=== PATIENT | male | born 1950 | race Caucasian/White ===

== ENCOUNTER 2020-09-08 11:40 | Day surgery (SDC) | payer MEDICARE ==
[2020-09-05 10:03] VITALS: BMI 22.6
[2020-09-08] MEDS ORDERED: Lidocaine 1% MPF 2 ML VIAL ONE (12:15)
[2020-09-08] MEDS ORDERED: PROPOFOL 40 ML ONE (12:53)
[2020-09-08] MEDS ORDERED: Lidocaine 2% MPF 10 ML AMP (For Epidural Use) ONE (12:53)
== END 2020-09-08 14:47 | disposition home or self-care (01) ==
LOC: CSHSDC 11:40
PROVIDERS: ATTEND Internal Medicine Gastroenterology
PROC: 0DJD8ZZ Inspection of Lower Intestinal Tract, Via Natural or Artificial Opening Endoscopic (ICD-10-PCS; principal; 2020-09-08)
DX: Z12.11 Encounter for screening for malignant neoplasm of colon (principal); K29.70 Gastritis, unspecified, without bleeding; K31.9 Disease of stomach and duodenum, unspecified; K57.30 Diverticulosis of large intestine without perforation or abscess without bleeding; K64.9 Unspecified hemorrhoids; Z86.010 Personal history of colon polyps
CPT/HCPCS: 43239; G0105; 88305; J2001; J2704

== ENCOUNTER 2022-06-17 09:44 | Day surgery (SDC) | payer MEDICARE ==
[2022-06-15 12:56] VITALS: BMI 22.5
[2022-06-17] MEDS ORDERED: Lidocaine 2% MPF 10 ML AMP (For Epidural Use) ONE (09:54)
[2022-06-17] MEDS ORDERED: PROPOFOL 40 ML ONE (09:54)
== END 2022-06-17 11:40 | disposition home or self-care (01) ==
LOC: CSHSDC 09:44
PROVIDERS: ATTEND Internal Medicine Gastroenterology
PROC: 0DB98ZX Excision of Duodenum, Via Natural or Artificial Opening Endoscopic, Diagnostic (ICD-10-PCS; principal; 2022-06-17)
PROC: 0DB68ZX Excision of Stomach, Via Natural or Artificial Opening Endoscopic, Diagnostic (ICD-10-PCS; 2022-06-17)
DX: K31.7 Polyp of stomach and duodenum (principal); K44.9 Diaphragmatic hernia without obstruction or gangrene; K31.89 Other diseases of stomach and duodenum; E78.5 Hyperlipidemia, unspecified; G62.9 Polyneuropathy, unspecified; M06.9 Rheumatoid arthritis, unspecified; Z87.11 Personal history of peptic ulcer disease; Z86.010 Personal history of colon polyps; Z87.442 Personal history of urinary calculi; Z88.8 Allergy status to other drugs, medicaments and biological substances
CPT/HCPCS: 88305; J2704

== ENCOUNTER 2022-07-16 12:30 | Outpatient (CLI) | payer MEDICARE | END 2022-07-16 12:31 | disposition home or self-care (01) | LOC: CSHNM 12:30 | PROVIDERS: ATTEND Internal Medicine Gastroenterology | DX: R10.9 Unspecified abdominal pain (principal) | CPT/HCPCS: 78227; A9537 ==

== ENCOUNTER 2022-08-06 10:39 | Outpatient (CLI) | payer MEDICARE | END 2022-08-06 10:40 | disposition home or self-care (01) | LOC: CSHRAD 10:39 | PROVIDERS: ATTEND Internal Medicine | DX: K44.9 Diaphragmatic hernia without obstruction or gangrene (principal); R10.13 Epigastric pain; R14.2 Eructation | CPT/HCPCS: 74220 ==

== ENCOUNTER 2023-09-02 06:18 | Day surgery (SDC) | payer MEDICARE ==
[2023-09-01 13:56] VITALS: BMI 22.9
[2023-09-02] MEDS ORDERED: PROPOFOL 60 ML ONE (08:07)
[2023-09-02] MEDS ORDERED: Lidocaine 2% MPF 10 ML AMP (For Epidural Use) ONE (08:07)
== END 2023-09-02 09:40 | disposition home or self-care (01) ==
LOC: CSHSDC 06:18
PROVIDERS: ATTEND Internal Medicine Gastroenterology
PROC: 0DJD8ZZ Inspection of Lower Intestinal Tract, Via Natural or Artificial Opening Endoscopic (ICD-10-PCS; principal; 2023-09-02)
DX: K57.30 Diverticulosis of large intestine without perforation or abscess without bleeding (principal); K64.8 Other hemorrhoids; K63.89 Other specified diseases of intestine; R19.4 Change in bowel habit; I10 Essential (primary) hypertension; Z86.010 Personal history of colon polyps; Z88.1 Allergy status to other antibiotic agents; Z88.8 Allergy status to other drugs, medicaments and biological substances
CPT/HCPCS: J2704

== ENCOUNTER 2024-04-30 12:56 | Emergency (ER) | payer MEDICARE ==
[~2024-04-30 12:56] MED LIST: Iopamidol 370 76% 100 ML VIAL ONE
[2024-04-30 13:45] LABS: #Basophils 0.03 10x3/uL (0.0-0.2); #Eosinophils 0.16 10x3/uL (0.0-0.5); #Monocytes 0.42 10x3/uL (0.0-1.1); %Basophils 0.6 % (0.0-2.0); %Eosinophils 3.3 % (0.0-6.0); %Lymphocytes 29.6 % (18.0-47.0); %Monocytes 8.6 % (0.0-10.0); %Neutrophils 57.7 % (40.0-75.0); Hematocrit 43.2 % (38.8-50.0); Hemoglobin 14.6 g/dL (13.5-17.5); Mean Corpuscular HGB CONC 33.8 g/dL (32.0-36.0); Mean Corpuscular Hemoglobin 30.2 pg (27.0-33.0); Mean Corpuscular Volume 89.4 fL (81.2-95.1); Mean Platelet Volume 10.5 fL (7.4-10.4); Platelet Count 163 10x3/uL (150-450); RBC Distribution Width 13.3 % (11.5-14.5); Red Blood Cell (RBC) Count 4.83 10x6/uL (4.32-5.72); White Blood Cell (WBC) Count 4.9 10x3/uL (3.5-10.5)
[2024-04-30 13:54] LABS: PTT 26.5 sec (22.0-33.0); Prothrombin Time 10.9 sec (9.5-12.1)
[2024-04-30 14:00] LABS: ALT (SGPT) 16 U/L (8-55); AST (SGOT) 19 U/L (5-34); Albumin 3.9 g/dL (3.4-4.8); Alkaline Phosphatase 59 U/L (40-110); Anion Gap 14 mmol/L (10-20); BUN (Urea Nitrogen) 11 mg/dL (8.4-25.7); Bilirubin, Total 0.8 mg/dL (0.2-1.2); Calc. Creatinine Clearance 0 mL/min (70-130); Calcium 9.4 mg/dL (7.8-10.44); Carbon Dioxide 24 mmol/L (23-31); Chloride 107 mmol/L (98-107); Estimated GFR 79; Globulin 2.4 g/dL (2.4-3.5); Glucose 98 mg/dL (83-110); Magnesium 2.2 mg/dL (1.6-2.6); Potassium 4.3 mmol/L (3.5-5.1); Protein, Total 6.3 g/dL (5.8-8.1); Sodium 141 mmol/L (136-145)
[2024-04-30 14:12] LABS: Troponin I Less than 0.010 ng/mL (< 0.028)
[2024-04-30] MEDS ORDERED: Morphine 4 MG/ML VIAL ONE (14:21)
== END 2024-04-30 15:35 | disposition home or self-care (01) ==
LOC: CSHERS 12:56
DX: K29.00 Acute gastritis without bleeding (principal); I25.10 Atherosclerotic heart disease of native coronary artery without angina pectoris
CPT/HCPCS: 71045; 71275; 74174; 80053; 83735; 83880; 84484; 85025; 85610; 85730; 93005; J2272; 96374; Q9967

== ENCOUNTER 2025-01-11 17:36 | Emergency (ER) | payer MEDICARE ==
[2025-01-11] MEDS ORDERED: HYDROcodone/Acetaminophen 10/325 mg Tablet ONE (18:01)
== END 2025-01-11 20:07 | disposition home or self-care (01) ==
LOC: CSHERS 17:36
DX: S40.012A Contusion of left shoulder, initial encounter (principal); I25.10 Atherosclerotic heart disease of native coronary artery without angina pectoris; W18.30XA Fall on same level, unspecified, initial encounter; Y93.K1 Activity, walking an animal
CPT/HCPCS: 70450; 71250; 72125

== ENCOUNTER 2025-01-15 04:36 | Inpatient (IN) | payer MEDICARE ==
[2025-01-15 05:07] LABS: #Basophils 0.04 10x3/uL (0.0-0.2); #Eosinophils 0.22 10x3/uL (0.0-0.5); #Monocytes 0.49 10x3/uL (0.0-1.1); #Neutrophils 2.45 10x3/uL (1.5-8.4); %Basophils 0.9 % (0.0-2.0); %Eosinophils 4.8 % (0.0-6.0); %Lymphocytes 30.0 % (18.0-47.0); %Monocytes 10.7 % (0.0-10.0); %Neutrophils 53.2 % (40.0-75.0); Hematocrit 39.2 % (38.8-50.0); Hemoglobin 13.4 g/dL (13.5-17.5); Mean Corpuscular Hemoglobin 31.7 pg (27.0-33.0); Mean Corpuscular Volume 92.7 fL (81.2-95.1); Platelet Count 162 10x3/uL (150-450); Red Blood Cell (RBC) Count 4.23 10x6/uL (4.32-5.72); White Blood Cell (WBC) Count 4.60 10x3/uL (3.5-10.5)
[2025-01-15 05:15] LABS: ALT (SGPT) 18 U/L (Less than 45); AST (SGOT) 26 U/L (11-34); Albumin 3.8 g/dL (3.1-4.5); Alkaline Phosphatase 63 U/L (40-110); Anion Gap 14 mmol/L (10-20); BUN (Urea Nitrogen) 19 mg/dL (8.4-25.7); Bilirubin, Total 0.4 mg/dL (0.3-1.2); Calc. Creatinine Clearance 0 mL/min (70-130); Calcium 9.5 mg/dL (7.8-10.44); Carbon Dioxide 25 mmol/L (23-31); Chloride 108 mmol/L (98-107); Globulin 2.7 g/dL (2.4-3.5); Glucose 108 mg/dL (83-110); Potassium 4.1 mmol/L (3.5-5.1); Sodium 143 mmol/L (136-145)
[2025-01-15 05:21] LABS: Troponin I Less than 0.010 ng/mL (< 0.028)
[2025-01-15 06:02] LABS: Glucose, Urine (Dipstick) Normal (Negative); Leukocyte Negative (Negative); Protein, Urine (Dipstick) 15 mg/dl (Neg-Trace); Specific Gravity, Urine 1.010 (1.005-1.030)
[2025-01-15 06:27] LABS: Bacteria/HPF 2+ HPF (None Seen); CAUTI Indications for Culture Fever or rigors; RBC/HPF 0-3 HPF (0-3); WBC/HPF 0-3 HPF (0-3)
[2025-01-15 06:28] LABS: Urine Culture Reflex No No
[2025-01-15] MEDS ORDERED: Senokot S 8.6-50 MG TAB PO PRN (13:12)
[2025-01-15] MEDS ORDERED: Ondansetron PF 4 MG/2 ML Vial IVP PRN (13:12)
[2025-01-15 14:19] LABS: Magnesium 2.0 mg/dL (1.6-2.6)
[2025-01-15] MEDS ORDERED: Acetaminophen 325 MG TAB ONE (16:06)
[2025-01-15] MEDS: Acetaminophen 325 MG TAB PO PRN (16:08)
[2025-01-15 17:58] VITALS: BMI 20.8
[2025-01-15 21:22] LABS: Cocaine Metabolite Screen Negative (Negative); THC/Cannabinoid Screen Negative (Negative); Tricyclic Screen Negative (Negative)
[2025-01-15] MEDS: Melatonin 3 MG TAB PO PRN (23:55)
[2025-01-16 05:54] LABS: #Basophils 0.04 10x3/uL (0.0-0.2); #Eosinophils 0.21 10x3/uL (0.0-0.5); #Monocytes 0.44 10x3/uL (0.0-1.1); #Neutrophils 2.41 10x3/uL (1.5-8.4); %Basophils 0.8 % (0.0-2.0); %Eosinophils 4.5 % (0.0-6.0); %Lymphocytes 34.0 % (18.0-47.0); %Monocytes 9.3 % (0.0-10.0); %Neutrophils 51.2 % (40.0-75.0); Hematocrit 38.9 % (38.8-50.0); Hemoglobin 13.3 g/dL (13.5-17.5); Mean Corpuscular Hemoglobin 31.2 pg (27.0-33.0); Mean Corpuscular Volume 91.3 fL (81.2-95.1); Platelet Count 144 10x3/uL (150-450); Red Blood Cell (RBC) Count 4.26 10x6/uL (4.32-5.72); White Blood Cell (WBC) Count 4.71 10x3/uL (3.5-10.5)
[2025-01-16 06:12] LABS: Anion Gap 15 mmol/L (10-20); BUN (Urea Nitrogen) 15 mg/dL (8.4-25.7); Calc. Creatinine Clearance 69 mL/min (70-130); Calcium 9.0 mg/dL (7.8-10.44); Carbon Dioxide 22 mmol/L (23-31); Chloride 109 mmol/L (98-107); Glucose 98 mg/dL (83-110); Potassium 3.6 mmol/L (3.5-5.1); Sodium 142 mmol/L (136-145)
[2025-01-16 13:08] VITALS: BP 113/69; TEMP 98
[2025-01-16 14:55] LABS: Troponin I Less than 0.010 ng/mL (< 0.028)
[2025-01-17] MEDS ORDERED: Aspirin 81 mg Enteric Coated Tablet PO SCH (09:00)
== END 2025-01-16 14:18 | disposition home or self-care (01) | DRG 312 ==
LOC: CSHERS 04:36 → CSHERHOLD 11:30 → CSHICU 17:55 → OBSVTOIN 01-16 09:54 → CSHTELE 01-16 11:33
PROVIDERS: ADMIT Internal Medicine; ATTEND Internal Medicine
DX: I95.2 Hypotension due to drugs (principal); T44.6X5A Adverse effect of alpha-adrenoreceptor antagonists, initial encounter; I10 Essential (primary) hypertension; E78.5 Hyperlipidemia, unspecified; I25.10 Atherosclerotic heart disease of native coronary artery without angina pectoris; N40.0 Benign prostatic hyperplasia without lower urinary tract symptoms; Z98.890 Other specified postprocedural states; Z88.8 Allergy status to other drugs, medicaments and biological substances; R07.2 Precordial pain; Z90.89 Acquired absence of other organs; Z98.41 Cataract extraction status, right eye; Z98.42 Cataract extraction status, left eye; I49.3 Ventricular premature depolarization
CPT/HCPCS: 36415; 71045; 80048; 80053; 80306; 81001; 83735; 83880; 84484; 85025; 93005; 94640; G0378; J7620